=== PATIENT | female | born 1960 | race Two or more races ===

== ENCOUNTER 2019-06-27 19:14 | Observation (INO) | payer BC ==
[2019-06-27 19:28] VITALS: BMI 21.4
--- NOTE | 2019-06-27 21:37 | PDOC ---
History of Present Illness - General Chief Complaint: Psychiatric Stated Complaint: CHEST PAIN Time Seen by Provider: 06/27/19 21:37 History Source: Patient Exam Limitations: No Limitations - History of Present Illness Initial Comments: 59 year old female with PMH HTN, HLD, NIDDM, hyperkalemia presented to ED for chest pain x4 weeks, worsening in the last week. PT reported she has been " going through a lot of stress" and whenever she thinks of "certain things" she feels the chest pain associated with shortness of breath/palpitations. She stated that she was seen by her PCP Thursday, but "was too embarrassed" to bring it up with her doctor. She denied hemoptysis, calf swelling, hormone use, OCP use, hx of DVT/PE, hx of malignancy, hx of surgery <4 weeks. Pt reported she flew from [place] on a three hour flight x2 weeks ago. She reported she feels the episodes are coming more frequently and higher in intensity today, prompting her to come to ED. Her reported to me that their daughter is having substance abuse issues with ETOH, has lost multiple jobs, and is a stress on the family, moreso the patient. PCP/Cardiology: Dr. Coley ([facility]) Last ECHO: 12/2018 - reported normal per pt Last Nuclear Stress 07/2017 - reported not all normal but unsure of actual results "something about my coronary arteries" per pt ROS General: denied fever, chills, generalized weakness. HEENT: denied sore throat, rhinorrhea, ear pain. Cardiovascular: admitted to chest pain, palpitations. denied syncope, diaphoresis. Respiratory: admitted to shortness of breath. denied cough, sputum production, hemoptysis. Gastrointestinal: denied abdominal pain, nausea, vomiting, diarrhea, constipation, blood in stool. Genitourinary: denied dysuria, increased urinary frequency, hematuria, urinary incontinence, flank pain. Back: denied back pain. Musculoskeletal: denied joint pain, muscle pain, joint swelling. Neurological: denied headache, dizziness, numbness, tingling, weakness. Integumentary: denied rash, laceration, abrasion. Hematologic/Lymphatic: denied bruising or bleeding. PE Constitutional: Well-nourished, Well-developed, appearing stated age. HEENT: head is normocephalic, atraumatic. EOMI. PERRLA. Neck: supple. Full ROM. Cardiovascular: regular heart rhythm. no murmurs. no pericardial friction rub. chest pain reproducible with talking about her daughter. Respiratory: clear to auscultation bilaterally. no crackles, rhonchi or wheezing. no stridor. Gastrointestinal: soft, nontender. normal bowel sounds. no rebound, guarding, masses. Extremities: peripheral pulses intact. no lower extremity edema. no calf tenderness bilaterally. Neurological: CN 2-12 grossly intact. moves all four extremities. Psych: awake, alert, oriented x3. follows commands. answers questions appropriately. Past History - Past Medical History Allergies/Adverse Reactions: Allergies Allergy/AdvReac Type Severity Reaction Status Date / Time Penicillins Allergy Verified 06/27/19 19:21 - Psycho Social/Smoking Cessation Hx Smoking History: Never smoked Hx Alcohol Use: No Drug/Substance Use Hx: No *Physical Exam - Vital Signs Last Vital Signs Temp Pulse Resp BP Pulse Ox 97.6 F 71 18 128/79 99 06/27/19 19:21 06/27/19 19:21 06/27/19 19:21 06/27/19 19:21 06/27/19 19:21 ED Treatment Course - LABORATORY CBC & Chemistry Diagram: 06/27/19 22:00 06/27/19 23:50 Medical Decision Making - Medical Decision Making 59 year old female with above PMH presented to ED for chest pain/palpitations/ shortness of breath episodes x4 weeks, worsening over the last week. Initial Vital Signs Temp Pulse Resp BP Pulse Ox 97.6 F 71 18 128/79 99 06/27/19 19:21 06/27/19 19:21 06/27/19 19:21 06/27/19 19:21 06/27/19 19:21 Afebrile. No tachycardia. No tachypnea. No hypertension, no hypotension. No hypoxia on room air. Labs ordered: CBC, CMP, mag, troponin, BNP Imaging ordered: CXR Medications ordered: ASA 324 mg PO chew, tylenol IV EKG performed at 1919: rate 73, regular rhythm, normal axis, normal intervals, QTc 429, no acute ST changes. CXR my view: sharp costophrenic angles. no cardiomegaly. no infiltrate. no pulmonary vascular congestion. -Pending official report 06/28/19 00:08 Lab reported CMP hemolyzed (both jungle tops) Repeat drawn and sent now. CBC WBC 9.1 K/mm3 (4.0-10.0) 06/27/19 22:00 RBC 4.77 M/mm3 (3.60-5.2) 06/27/19 22:00 Hgb 13.6 GM/dL (10.7-15.3) 06/27/19 22:00 Hct 41.8 % (32.4-45.2) 06/27/19 22:00 MCV 87.5 fl (80-96) 06/27/19 22:00 MCH 28.4 pg (25.7-33.7) 06/27/19 22:00 MCHC 32.5 g/dl (32.0-36.0) 06/27/19 22:00 RDW 14.5 % (11.6-15.6) 06/27/19 22:00 Plt Count 342 K/MM3 (134-434) 06/27/19 22:00 MPV 10.0 fl (7.5-11.1) 06/27/19 22:00 Absolute Neuts (auto) 5.0 K/mm3 (1.5-8.0) 06/27/19 22:00 Neutrophils % 55.2 % (42.8-82.8) 06/27/19 22:00 Lymphocytes % 35.4 % (8-40) 06/27/19 22:00 Monocytes % 6.9 % (3.8-10.2) 06/27/19 22:00 Eosinophils % 1.8 % (0-4.5) 06/27/19 22:00 Basophils % 0.7 % (0-2.0) 06/27/19 22:00 Nucleated RBC % 0 % (0-0) 06/27/19 22:00 No leukocytosis. No anemia. 06/28/19 00:39 Pt reported throat "burning" and pain. 06/28/19 01:32 CMP Sodium 141 mmol/L (136-145) 06/27/19 23:50 Potassium 4.6 mmol/L (3.5-5.1) 06/27/19 23:50 Chloride 108 mmol/L (98-107) H 06/27/19 23:50 Carbon Dioxide 25 mmol/L (21-32) 06/27/19 23:50 Anion Gap 10 MMOL/L (8-16) 06/27/19 23:50 BUN 25.0 mg/dL (7-18) H 06/27/19 23:50 Creatinine 0.9 mg/dL (0.55-1.3) 06/27/19 23:50 Est GFR (CKD-EPI)AfAm 81.11 06/27/19 23:50 Est GFR (CKD-EPI)NonAf 69.99 06/27/19 23:50 Random Glucose 96 mg/dL (74-106) 06/27/19 23:50 Calcium 10.2 mg/dL (8.5-10.1) H 06/27/19 23:50 Magnesium 2.0 mg/dL (1.8-2.4) 06/28/19 00:02 Total Bilirubin 0.6 mg/dL (0.2-1) 06/27/19 23:50 AST 22 U/L (15-37) 06/27/19 23:50 ALT 26 U/L (13-61) 06/27/19 23:50 Alkaline Phosphatase 78 U/L (45-117) 06/27/19 23:50 Troponin I < 0.02 ng/ml (0.00-0.05) 06/28/19 00:02 B-Natriuretic Peptide 15.8 pg/ml (5-125) 06/27/19 22:00 Total Protein 7.3 g/dl (6.4-8.2) 06/27/19 23:50 Albumin 3.9 g/dl (3.4-5.0) 06/27/19 23:50 Lipase 130 U/L (73-393) 06/28/19 00:02 No electrolyte abnormalities. No FREDY. No transaminitis. Troponin undetectable. BNP wnl. Lipase wnl. Pt to be admitted for chest pain, tele/obs. Pt has risk factors for ACS (DM, HTN , HLD, brother with ID in 40s) and is at risk for Takusubos, would benefit from ECHO and cardiology evaluation in the AM. EKG performed at 0153: rate 56, regular rhythm, normal axis, normal intervals, QTc 430, no acute ST changes. Discharge - Discharge Information Problems reviewed: Yes Clinical Impression/Diagnosis: Chest pain Condition: Stable - Admission Yes - Follow up/Referral - Patient Discharge Instructions - Post Discharge Activity
[2019-06-27] MEDS ORDERED: ASPIRIN 81 MG CHEWABLE TABLETS PO ONE (22:00)
[2019-06-27] MEDS ORDERED: SODIUM CHLORIDE 1,000 ML IV STA (22:00)
[2019-06-27 22:28] LABS: INR 0.98 (0.83-1.09); PROTHROMBIN TIME (PATIENT) 11.6 SEC (9.7-13.0)
[2019-06-27 23:05] LABS: BASO % 0.7 % (0-2.0); EOS % 1.8 % (0-4.5); HEMATOCRIT 41.8 % (32.4-45.2); HEMOGLOBIN 13.6 GM/dL (10.7-15.3); LYMPH % 35.4 % (8-40); MCH 28.4 pg (25.7-33.7); MCHC 32.5 g/dl (32.0-36.0); MEAN CELL VOLUME 87.5 fl (80-96); MONO % 6.9 % (3.8-10.2); NEUT % 55.2 % (42.8-82.8); PLATELET COUNT 342 K/MM3 (134-434); RBC 4.77 M/mm3 (3.60-5.2); RDW 14.5 % (11.6-15.6); WHITE BLOOD COUNT 9.1 K/mm3 (4.0-10.0)
[2019-06-28] MEDS ORDERED: SODIUM CHLORIDE 1,000 ML IV STA (00:37)
[2019-06-28] MEDS ORDERED: ASPIRIN COATED 81 MG TABLET.EC ONE ×2 (00:38→11:38)
[2019-06-28] MEDS ORDERED: ACETAMINOPHEN 1000 MG/100 ML VIAL (NON FORMULARY) IVPB ONE (00:39)
[2019-06-28] MEDS ORDERED: FAMOTIDINE 20 MG/50 ML IVPB 20 MG/50 ML MG IVPB ONE (00:39)
[2019-06-28] MEDS ORDERED: ACETAMINOPHEN 325 MG TABLET (FP) PO ONE (00:40)
[2019-06-28] MEDS ORDERED: ACETAMINOPHEN 325 MG TABLET (FP) ONE (00:41)
[2019-06-28] MEDS ORDERED: FAMOTIDINE 20 MG TABLET PO ONE (00:42)
[2019-06-28] MEDS ORDERED: FAMOTIDINE 10 MG TABLET ONE (00:42)
[2019-06-28 00:52] LABS: LIPASE 130 U/L (73-393)
[2019-06-28 01:17] LABS: CREATININE 0.9 mg/dL (0.55-1.3)
[2019-06-28 01:18] LABS: CALCIUM 10.2 mg/dL (8.5-10.1); POTASSIUM 4.6 mmol/L (3.5-5.1); TOT PROT 7.3 g/dl (6.4-8.2)
[2019-06-28 01:19] LABS: ALBUMIN 3.9 g/dl (3.4-5.0); BILIRUBIN,TOTAL 0.6 mg/dL (0.2-1)
--- NOTE | 2019-06-28 01:33 | PDOC ---
Attending Attestation - Resident Resident Name: Elisa Otto - ED Attending Attestation I have performed the following: I have examined & evaluated the patient, The case was reviewed & discussed with the resident, I agree w/resident's findings & plan, Exceptions are as noted - HPI HPI: 06/28/19 03:10 59 yo F h/o htn hld DM family h/o cad brother with NM in 40's here with c/o intermittent cp for several weeks. worse and more frequent over the last. week. pt does associate her sxs with recent stress. denies pleurisy, no f/c no cough no sob. no leg swelling. travel to [place], via plane, no mod factors. no h/o pe or dvt. no prior cardiac stress test or workup. - Physicial Exam PE: 06/28/19 03:13 awake alert lungs clear bilat heart rrr nomrg abd soft nd nt ext wwp no edema. no calf tenderness. nuero alert oriented x 3. - Medical Decision Making 06/28/19 03:14 59 yo mult med problems here with c/o cp. differential angina, infection . no risk factors for pe. plan cxr labs ekg trop aspirin. will admit to tele r/o acs due to risk factors. Heart Score/ECG Review #1 General ECG Interpretation: Sinus Rhythm, Normal Intervals, No acute ischemic changes Compared to previous ECG there are: Other (sinus bradycardia.)
--- NOTE | 2019-06-28 03:16 | HP ---
CHIEF COMPLAINT: chest pain PCP: Kamlesh Coley M.D. ([facility]) HISTORY OF PRESENT ILLNESS: 59 y/o female PMH HTN, HLD, and NIDDM c/o chest pain occurring with increasing frequency over the last 2 weeks. She states that over the course of the past month she has become severely worried about her 28 y/o daughter as she has been frequently intoxicated by etoh (falling asleep in train, losing multiple jobs; daughter was never assaulted and does not operate a motor vehicle). The chest pain is mid-sternal, occurs suddenly, persists for 3-5 minutes, characterized by pressure, radiates to UE BL, made better with rest, and is 10/10 when present. She has never experienced this before, has not been performing heavy lifting/exercise, denies taking medication to treat the symptom, and symptoms recur when she thinks about her daughter's etoh consumption. The CP is associated with palpitations, racing heart rate, sweating, trembling, feelings of choking, and a feeling of doom. She recently traveled to [place] (3 hour flight, 2 weeks ago), denies SOB, and denies calf pain. She denies NVFD and chills. She has had no sick contacts, recent illness or recent travel. ER course was notable for: (1) ASA 324 mg PO chew, tylenol IV (2) EKG NSR, no acute ST changes x3 (3) Trop NEG x1 Heart score of 4: moderately suspicious history, 59 y/o, 3+ risk factors, trop1 NEG Recent Travel: [place] (3 hour flight, 2 weeks ago) PAST MEDICAL HISTORY: HTN, HLD, and NIDDM PAST SURGICAL HISTORY: (1989), tubal ligation (2006), abdominoplasty ( 2007) Social History: Smoking: Denies Alcohol: Denies Drugs: Denies Family history: Mother - breast cancer; Father - cirrhosis; brother - [place] Allergies: Penicillins Allergy (Verified 06/27/19 19:21) HOME MEDICATIONS: - Metformin 500 mg BID - Amlodepine 10 mg QD - Rosuvastatin 10 mg HS - Homeopathic herbs: Triphala, Ashwagandha REVIEW OF SYSTEMS CONSTITUTIONAL: Absent: fever, chills, diaphoresis, generalized weakness, malaise, loss of appetite, weight change HEENT: Absent: rhinorrhea, nasal congestion, throat pain, throat swelling, difficulty swallowing, mouth swelling, ear pain, eye pain, visual changes CARDIOVASCULAR: Absent: chest pain, syncope, palpitations, irregular heart rate, lightheadedness , peripheral edema RESPIRATORY: Absent: cough, shortness of breath, dyspnea with exertion, orthopnea, wheezing, stridor, hemoptysis GASTROINTESTINAL: Absent: abdominal pain, abdominal distension, nausea, vomiting, diarrhea, constipation, melena, hematochezia GENITOURINARY: Absent: dysuria, frequency, urgency, hesitancy, hematuria, flank pain, genital pain MUSCULOSKELETAL: Absent: myalgia, arthralgia, joint swelling, back pain, neck pain SKIN: Absent: rash, itching, pallor HEMATOLOGIC/IMMUNOLOGIC: Absent: easy bleeding, easy bruising, lymphadenopathy, frequent infections ENDOCRINE: Absent: unexplained weight gain, unexplained weight loss, heat intolerance, cold intolerance NEUROLOGIC: Absent: headache, focal weakness or paresthesias, dizziness, unsteady gait, seizure, mental status changes, bladder or bowel incontinence PSYCHIATRIC: Absent: anxiety, depression, suicidal or homicidal ideation, hallucinations. PHYSICAL EXAMINATION Vital Signs - 24 hr 06/27/19 19:21 Temperature 97.6 F Pulse Rate 71 Respiratory 18 Rate Blood Pressure 128/79 O2 Sat by Pulse 99 Oximetry (%) GENERAL: AOx3, in no acute distress, resting comfortably in bed with sheets over head. HEAD: NCAT EYES: SEBASTIAN, EOMI, conjunctiva clear. ENT: Ears normal, nares patent, oropharynx clear without exudates. Moist mucous membranes. NECK: Normal range of motion, supple without lymphadenopathy, JVD, or masses. LUNGS: CTAB. No wheezes, and no crackles. No accessory muscle use. HEART: RRR s1 s2 ABDOMEN: Soft, BS present in all 4 quadrants, non-distended, no JVD, MUSCULOSKELETAL: No bony deformities or tenderness. No CVA tenderness. UPPER EXTREMITIES: 2+ pulses, warm, well-perfused. No cyanosis. No clubbing. No peripheral edema. LOWER EXTREMITIES: 2+ pulses, warm, well-perfused. No calf tenderness. No peripheral edema. NEUROLOGICAL: No focal deficits. Cranial nerves II-XII intact. Normal speech. Gait not appreciated. PSYCHIATRIC: Cooperative. Good eye contact. Appropriate mood and affect. SKIN: Warm, dry, normal turgor, no rashes or lesions noted, normal capillary refill. Laboratory Results - last 24 hr 06/27/19 06/27/19 06/27/19 22:00 22:00 22:00 WBC 9.1 RBC 4.77 Hgb 13.6 Hct 41.8 MCV 87.5 MCH 28.4 MCHC 32.5 RDW 14.5 Plt Count 342 MPV 10.0 Absolute Neuts (auto) 5.0 Neutrophils % 55.2 Lymphocytes % 35.4 Monocytes % 6.9 Eosinophils % 1.8 Basophils % 0.7 Nucleated RBC % 0 PT with INR 11.60 INR 0.98 PTT (Actin FS) 37.0 H Sodium Cancelled Potassium Cancelled Chloride Cancelled Carbon Dioxide Cancelled Anion Gap Cancelled BUN Cancelled Creatinine Cancelled Est GFR (CKD-EPI)AfAm Cancelled Est GFR (CKD-EPI)NonAf Cancelled Random Glucose Cancelled Calcium Cancelled Magnesium Cancelled Total Bilirubin Cancelled AST Cancelled ALT Cancelled Alkaline Phosphatase Cancelled Troponin I Cancelled B-Natriuretic Peptide Total Protein Cancelled Albumin Cancelled Lipase Cancelled 06/27/19 06/27/19 06/28/19 22:00 23:50 00:02 WBC RBC Hgb Hct MCV MCH MCHC RDW Plt Count MPV Absolute Neuts (auto) Neutrophils % Lymphocytes % Monocytes % Eosinophils % Basophils % Nucleated RBC % PT with INR INR PTT (Actin FS) Sodium 141 Potassium 4.6 Chloride 108 H Carbon Dioxide 25 Anion Gap 10 BUN 25.0 H Creatinine 0.9 Est GFR (CKD-EPI)AfAm 81.11 Est GFR (CKD-EPI)NonAf 69.99 Random Glucose 96 Calcium 10.2 H Magnesium 2.0 Total Bilirubin 0.6 AST 22 ALT 26 Alkaline Phosphatase 78 Troponin I < 0.02 B-Natriuretic Peptide 15.8 Total Protein 7.3 Albumin 3.9 Lipase 130 ASSESSMENT/PLAN: 59 y/o female PMH HTN, HLD, and NIDDM c/o chest pain occurring with increasing frequency over the last 2 weeks. # Panic attack - Educate pt on need to est. regular visits with PCP - Consider SSRI # R/o ACS - ?Cosnider Takotsubo cardiomyopathy (weakening of left ventricle as the result of severe emotional or physical stress) - NPO for stress test - ECHO - Consult cardiology - F/u troponin - ASA 81 mg QD - Rosuvastatin 10 mg Po # DM - Hold home regimen - ISS ACHS # HLD - Cont. curent home regimen #F/E/N - PO - Cont. to monitor - NPO # DVT prophylaxis - Heparin SQ # Disposition - Admit to tele/observation Jean Fernandes MD Visit type - Emergency Visit Emergency Visit: Yes ED Registration Date: 06/28/19 Care time: The patient presented to the Emergency Department on the above date and was hospitalized for further evaluation of their emergent condition. - New Patient This patient is new to me today: Yes Date on this admission: 06/28/19 - Critical Care Critical Care patient: No ATTENDING PHYSICIAN STATEMENT I saw and evaluated the patient. I reviewed the resident's note and discussed the case with the resident. I agree with the resident's findings and plan as documented. SUBJECTIVE: OBJECTIVE: ASSESSMENT AND PLAN:
--- NOTE | 2019-06-28 04:05 | PN ---
Teaching Attending Note Name of Resident: Jean Fernandes ATTENDING PHYSICIAN STATEMENT I saw and evaluated the patient. I reviewed the resident's note and discussed the case with the resident. I agree with the resident's findings and plan as documented. SUBJECTIVE: 59-year-old woman with a history of hypertension, diabetes, family history significant for brother with massive ME at age 44, was under a lot of stress recently because of family issues and reports sharp mid chest pain with radiation to bilateral upper extremities not associated with significant shortness of breath on and off, no significant relation to exertion for about the past 2 weeks. Patient reports that she follows with electro mechanical technician outside and has had at least 3 cardiac stress test which were unremarkable for ischemia. OBJECTIVE: Last Vital Signs Temp Pulse Resp BP Pulse Ox 97.6 F 71 18 128/79 99 06/27/19 19:21 12 19:21 12 19:21 06/27/19 19:21 06/27/19 19:21 GENERAL: Well developed, well nourished. Awake and alert. No acute distress. HEENT: Normocephalic, atraumatic. PERRLA, EOMI. No conjunctival pallor. Sclera are non- icteric. Moist mucous membranes. Oropharynx is clear. NECK: Supple. Full ROM. No JVD. Carotid pulses 2+ and symmetric, without bruits. No thyromegaly. No lymphadenopathy. CARDIOVASCULAR: Regular rate and rhythm. No murmurs, rubs, or gallops. Distal pulses are 2+ and symmetric. PULMONARY: No evidence of respiratory distress. Lungs clear to auscultation bilaterally. No wheezing, rales or rhonchi. ABDOMINAL: Soft. Non-tender. Non-distended. No rebound or guarding. No organomegaly. Normoactive bowel sounds. MUSCULOSKELETAL Normal range of motion at all joints. No bony deformities or tenderness. No CVA tenderness. EXTREMITIES: No cyanosis. No clubbing. No edema. No calf tenderness. SKIN: Warm and dry. Normal capillary refill. No rashes. No jaundice. PSYCHIATRIC: Cooperative. Good eye contact. Appropriate mood and affect. Abnormal Lab Results 06/27/19 06/27/19 22:00 23:50 PTT (Actin FS) 37.0 H Chloride 108 H BUN 25.0 H Calcium 10.2 H EKG reviewed no ischemia noted Chest x-ray reviewed ASSESSMENT AND PLAN: 59-year-old woman with moderate risk for cardiac disease given her strong family history and comorbidities with chest pain that is atypical nature, now resolved Telemetry ops Trend troponins Echo Cardiology evaluation Consider possible cardiac stress test Aspirin Statin Heparin subcutaneously for DVT prophylaxis Continue home meds
[2019-06-28] MEDS ORDERED: HEPARIN NA (PORCINE) 5,000 UNITS/ML 1ML VIAL SQ SCH (06:00)
[2019-06-28] MEDS ORDERED: HEPARIN NA (PORCINE) 5,000 UNITS/ML 1ML VIAL ONE (06:38)
[2019-06-28 07:00] VITALS: BP 118/65; PULSE 61; TEMP 97.9
[2019-06-28 07:14] LABS: HEMATOCRIT 38.3 % (32.4-45.2); HEMOGLOBIN 12.9 GM/dL (10.7-15.3); MCH 29.2 pg (25.7-33.7); MCHC 33.6 g/dl (32.0-36.0); MEAN CELL VOLUME 86.9 fl (80-96); MEAN PLT VOLUME 9.1 fl (7.5-11.1); PLATELET COUNT 311 K/MM3 (134-434); WHITE BLOOD COUNT 8.6 K/mm3 (4.0-10.0)
--- NOTE | 2019-06-28 07:44 | PDOC ---
Patient Follow-up (Call Back) - Post ED Follow - Up Condition at time of discharge: Stable Reason for Call Back: Radiology (Dr Lucia called to inform of questionable nodule along R first rib. Recommending follow up with PCP after DC.)
[2019-06-28 07:49] LABS: ANION GAP 5 MMOL/L (8-16); BLOOD UREA NITROGEN 21.1 mg/dL (7-18); CALCIUM 9.1 mg/dL (8.5-10.1); CHLORIDE 112 mmol/L (98-107); CO2 24 mmol/L (21-32); GLUCOSE,RANDOM 99 mg/dL (74-106); MAGNESIUM 2.1 mg/dL (1.8-2.4); PHOSPHOROUS 3.7 mg/dL (2.5-4.9); POTASSIUM 3.9 mmol/L (3.5-5.1); SODIUM 141 mmol/L (136-145)
--- NOTE | 2019-06-28 09:30 | EKG ---
Test Reason : Blood Pressure : / mmHG Vent. Rate : 056 BPM Atrial Rate : 056 BPM P-R Int : 180 ms QRS Dur : 086 ms QT Int : 446 ms P-R-T Axes : 050 066 067 degrees QTc Int : 430 ms SINUS BRADYCARDIA OTHERWISE NORMAL ECG NO PREVIOUS ECGS AVAILABLE Confirmed by MD Robert, Hakeem ([id number]) on 06/28/2019 9:30:07 AM Referred By: Confirmed By:Hakeem Jones MD
[2019-06-28] MEDS ORDERED: ROSUVASTATIN CA 10 MG TABLET (FP) PO SCH ×2 (10:00→22:00)
[2019-06-28] MEDS ORDERED: amLODIPine BESYLATE 10 MG TABLET (FP) PO SCH (10:00)
[2019-06-28] MEDS ORDERED: ASPIRIN COATED 81 MG TABLET.EC PO SCH (10:00)
--- NOTE | 2019-06-28 11:10 | CON.CARD ---
Consult Consult Specialty:: Cardiology Referred by:: Hospitalist Reason for Consultation:: Cardiac evaluation - History of Present Illness Chief Complaint: Chest pain History of Present Illness: Patient is a 59 year old female with underlying history of HTN, T2DM and hypercholesterolemia who presented to ED with mid sternal chest pressure with radiation to both arms. She states having lot of stress recently due to family issues. She does not report shortness of breath or palpitations. She had seen Dr. Ari Alston of [facility] in the past and then Dr. Baldev Pascual one occasion , however; she now sees a manager copy affiliated with [facility]. She states that she has had echocardiography and nuclear MPI both 2017 and 2018 and states that they were unremarkable. Currently, she denies paroxysmal nocturnal dyspnea or orthopnea. She denies fever or chills. She denies nausea, vomiting, diarrhea or abdominal pain. She denies headache or lightheadedness. - History Source History Provided By: Patient, Medical Record Limitations to Obtaining History: No Limitations - Past Medical History Cardio/Vascular: Yes: HTN, Hyperlipdemia Endocrine: Yes: Diabetes Mellitus - Past Surgical History Past Surgical History: Yes: Additional Surgical History: Abdominoplasty - Alcohol/Substance Use Hx Alcohol Use: No History of Substance Use: reports: None - Smoking History Smoking history: Never smoked Home Medications - Allergies Allergies/Adverse Reactions: Allergies Allergy/AdvReac Type Severity Reaction Status Date / Time Penicillins Allergy Verified 06/27/19 19:21 - Home Medications Home Medications: Ambulatory Orders Amlodipine Besylate 10 mg PO DAILY 06/28/19 Metformin HCl [Glucophage] 500 mg PO BID 06/28/19 Rosuvastatin Calcium [Crestor] 10 mg PO DAILY 06/28/19 Family Medical History Family Hx Cancer: Mother (Breast cancer) Family Hx Coronary Artery Disease: Brother (NM) Review of Systems - Review of Systems Constitutional: denies: Chills, Fever Cardiovascular: reports: Chest Pain. denies: Palpitations, Shortness of Breath Respiratory: denies: Cough, Hemoptysis, Orthopnea, PND, SOB, SOB on Exertion Gastrointestinal: denies: Abdominal Pain, Constipation, Diarrhea, Melena, Nausea , Rectal Bleeding, Vomiting Neurological: denies: Dizziness, Headache, Seizure, Syncope Vital Signs: Vital Signs Temperature 97.9 F 12/03/19 06:59 Pulse Rate 61 06/28/19 06:59 Respiratory Rate 18 06/28/19 06:59 Blood Pressure 118/65 06/28/19 06:59 O2 Sat by Pulse Oximetry (%) 98 06/28/19 06:59 Eyes: Yes: PERRL HENT: Yes: Atraumatic Neck: Yes: Supple Respiratory: Yes: CTA Bilaterally Gastrointestinal: Yes: Normal Bowel Sounds, Soft. No: Tenderness Cardiovascular: Yes: Regular Rate and Rhythm JVD: No Carotid Bruit: No PMI: Non-Displaced Heart Sounds: Yes: S1, S2 Edema: No - Other Data Labs, Other Data: CBC, BMP 06/28/19 06:27 06/28/19 06:27 INR, PTT INR 0.98 (0.83-1.09) 06/27/19 22:00 Troponin, BNP 06/27/19 06/27/19 06/28/19 22:00 22:00 00:02 Troponin I Cancelled < 0.02 B-Natriuretic Peptide 15.8 06/28/19 06:27 Troponin I < 0.02 B-Natriuretic Peptide Sinus bradycardia, normal ECG Echo: Pending Imaging - Results Chest X-ray: Report Reviewed (Questionable lung nodules) EKG: Report Reviewed Problem List - Problems (1) HTN (hypertension) Code(s): I10 - ESSENTIAL (PRIMARY) HYPERTENSION (2) Hypercholesterolemia Code(s): E78.00 - PURE HYPERCHOLESTEROLEMIA, UNSPECIFIED (3) T2DM (type 2 diabetes mellitus) Code(s): E11.9 - TYPE 2 DIABETES MELLITUS WITHOUT COMPLICATIONS (4) Pulmonary nodule Code(s): R91.1 - SOLITARY PULMONARY NODULE (5) Chest pain Code(s): R07.9 - CHEST PAIN, UNSPECIFIED Assessment/Plan 1. Chest pain syndrome, atypical 2. HTN 3. Hypercholesterolemia 4. T2DM 5. ? Lung nodules PLAN: 1. Trend troponin 2. Echocardiography to assess LV/RV and valvular function and to rule out Takotsubo CM in view of recent stress (Preliminary reveals normal LV systolic function) 3. No need to nuclear MPI at this time since she has had studies done with her manager copy as outpatient. Further work up and follow up can be done as outpatient. Discharge planing if echocardiography is unremarkable 4. Continue Amlodipine 5. Continue Statin therapy 6. Continue DM management 7. Agree with ASA 8. Further work up for lung nodule. Cancer surveillance in view of family history of breast cancer Further plans are to follow Pedro Marlow MD
--- NOTE | 2019-06-28 11:23 | ECHO ---
Version: 1 Name: MENDOZA TALBOT Exam: Adult Echocardiogram Study Date: 06/28/2019, 9:30 AM Age: 59 Years MMode/2D Measurements & Calculations IVSd: 0.78 cm LVIDs: 2.15 cm LVIDd: 3.1 cm LVPWd: 0.64 cm LVOT diam: 1.58 cm Ao root diam: 2.01 cm LA dimension: 3.1 cm Doppler Measurements & Calculations MV E max jay: 102.4 cm/sec Med E/e': 15.6 MV A max jay: 68.5 cm/sec Med Peak E' Jay: 6.6 cm/sec MV E/A: 1.50 Lat E/e': 8.4 Lat Peak E' Jay: 12.2 cm/sec Ao max P.4 mmHg Ao V2 max: 153.6 cm/sec TR max jay: 242.5 cm/sec TR max P.5 mmHg Left Ventricle The left ventricular size, thickness and function are normal. Ejection Fraction = 55-60%. The transm itral spectral Doppler flow pattern is normal for age. No regional wall motion abnormalities noted. Right Ventricle The right ventricle is normal in size and function. Atria Normal left and right atrial size and function. Mitral Valve The mitral valve is normal in structure and function. Tricuspid Valve The tricuspid valve is normal in structure and function. Right ventricular systolic pressure is norm al. Aortic Valve There is mild aortic valve thickening. No hemodynamically significant valvular aortic stenosis. Pulmonic Valve The pulmonic valve is not well seen, but is grossly normal. Great Vessels The aortic root is normal size. Pericardium/Pleura There is no pericardial effusion. There is no pleural effusion. Summary Statements This was essentially a normal study. MD Sharri Mendez06/28/2019, 11:23 AM Ordering Physician: Adalberto Fernandes Referring Physician: ADALBERTO FERNANDES Performed By: Medina Brady
[2019-06-28] MEDS ORDERED: amLODIPine BESYLATE 5 MG TABLET (FP) ONE (11:38)
--- NOTE | 2019-06-28 12:31 | DS ---
Physical Exam: SUBJECTIVE: Patient seen and examined OBJECTIVE: Vital Signs Period Temp Pulse Resp BP Sys/Rodriguez Pulse Ox Last 24 Hr 97.6 F-97.9 F 61-71 18-18 118-128/65-79 98-99 PHYSICAL EXAM GENERAL: The patient is awake, alert, and fully oriented, in no acute distress. HEAD: Normal with no signs of trauma. EYES: PERRL, extraocular movements intact, sclera anicteric, conjunctiva clear. ENT: Ears normal, nares patent, oropharynx clear without exudates, moist mucous membranes. NECK: Trachea midline, full range of motion, supple. LUNGS: Breath sounds equal, clear to auscultation bilaterally, no wheezes, no crackles, no accessory muscle use. HEART: Regular rate and rhythm, S1, S2 without murmur, rub or gallop. ABDOMEN: Soft, nontender, nondistended, normoactive bowel sounds, no guarding, no rebound, no hepatosplenomegaly, no masses. EXTREMITIES: 2+ pulses, warm, well-perfused, no edema. NEUROLOGICAL: Cranial nerves II through XII grossly intact. Normal speech, gait not observed. PSYCH: Normal mood, normal affect. SKIN: Warm, dry, normal turgor, no rashes or lesions noted. LABS Laboratory Results - last 24 hr 06/27/19 06/27/19 06/27/19 22:00 22:00 22:00 WBC 9.1 RBC 4.77 Hgb 13.6 Hct 41.8 MCV 87.5 MCH 28.4 MCHC 32.5 RDW 14.5 Plt Count 342 MPV 10.0 Absolute Neuts (auto) 5.0 Neutrophils % 55.2 Lymphocytes % 35.4 Monocytes % 6.9 Eosinophils % 1.8 Basophils % 0.7 Nucleated RBC % 0 PT with INR 11.60 INR 0.98 PTT (Actin FS) 37.0 H Sodium Cancelled Potassium Cancelled Chloride Cancelled Carbon Dioxide Cancelled Anion Gap Cancelled BUN Cancelled Creatinine Cancelled Est GFR (CKD-EPI)AfAm Cancelled Est GFR (CKD-EPI)NonAf Cancelled POC Glucometer Random Glucose Cancelled Calcium Cancelled Phosphorus Magnesium Cancelled Total Bilirubin Cancelled AST Cancelled ALT Cancelled Alkaline Phosphatase Cancelled Troponin I Cancelled B-Natriuretic Peptide Total Protein Cancelled Albumin Cancelled Lipase Cancelled TSH 12/09/1406/27/19 06/28/19 22:00 23:50 00:02 WBC RBC Hgb Hct MCV MCH MCHC RDW Plt Count MPV Absolute Neuts (auto) Neutrophils % Lymphocytes % Monocytes % Eosinophils % Basophils % Nucleated RBC % PT with INR INR PTT (Actin FS) Sodium 141 Potassium 4.6 Chloride 108 H Carbon Dioxide 25 Anion Gap 10 BUN 25.0 H Creatinine 0.9 Est GFR (CKD-EPI)AfAm 81.11 Est GFR (CKD-EPI)NonAf 69.99 POC Glucometer Random Glucose 96 Calcium 10.2 H Phosphorus Magnesium 2.0 Total Bilirubin 0.6 AST 22 ALT 26 Alkaline Phosphatase 78 Troponin I < 0.02 B-Natriuretic Peptide 15.8 Total Protein 7.3 Albumin 3.9 Lipase 130 TSH 06/28/19 06/28/19 06/28/19 06:27 06:27 06:36 WBC 8.6 RBC 4.40 Hgb 12.9 Hct 38.3 MCV 86.9 MCH 29.2 MCHC 33.6 RDW 14.0 Plt Count 311 MPV 9.1 Absolute Neuts (auto) Neutrophils % Lymphocytes % Monocytes % Eosinophils % Basophils % Nucleated RBC % PT with INR INR PTT (Actin FS) Sodium 141 Potassium 3.9 Chloride 112 H Carbon Dioxide 24 Anion Gap 5 L BUN 21.1 H Creatinine 1.0 Est GFR (CKD-EPI)AfAm 71.41 Est GFR (CKD-EPI)NonAf 61.62 POC Glucometer 95 Random Glucose 99 Calcium 9.1 Phosphorus 3.7 Magnesium 2.1 Total Bilirubin AST ALT Alkaline Phosphatase Troponin I < 0.02 B-Natriuretic Peptide Total Protein Albumin Lipase TSH 1.85 HOSPITAL COURSE: Date of Admission:06/28/19 Date of Discharge: 06/28/19 Discharge Summary Problems reviewed: Yes Reason For Visit: CHEST PAIN Current Active Problems Chest pain (Acute) HTN (hypertension) (Acute) Hypercholesterolemia (Acute) Pulmonary nodule (Acute) T2DM (type 2 diabetes mellitus) (Acute) Condition: Stable - Instructions Diet, Activity, Other Instructions: Please follow up with your primary care doctor. Thank you for allowing us to care for you. Referrals: ON STAFF,NOT [Primary Care Provider] - Disposition: HOME - Home Medications Comprehensive Discharge Medication List: Ambulatory Orders Amlodipine Besylate 10 mg PO DAILY 06/28/19 Metformin HCl [Glucophage] 500 mg PO BID 06/28/19 Rosuvastatin Calcium [Crestor] 10 mg PO DAILY 06/28/19
--- NOTE | 2019-06-30 10:42 | EKG ---
Test Reason : Blood Pressure : / mmHG Vent. Rate : 073 BPM Atrial Rate : 073 BPM P-R Int : 148 ms QRS Dur : 072 ms QT Int : 390 ms P-R-T Axes : 056 062 060 degrees QTc Int : 429 ms NORMAL SINUS RHYTHM NORMAL ECG NO PREVIOUS ECGS AVAILABLE Confirmed by LUIS ARTIS, SAURABH ([id number]) on 06/30/2019 10:41:33 AM Referred By: Confirmed By:SAURABH SMITH MD
== END 2019-06-28 13:30 | disposition home or self-care (01) ==
LOC: JER 19:14 → JERBED 06-28 01:46
PROVIDERS: ADMIT Internal Medicine; ATTEND Nurse Practitioner Family
PROC: 3E013GC Introduction of Other Therapeutic Substance into Subcutaneous Tissue, Percutaneous Approach (ICD-10-PCS; principal; 2019-06-28)
DX: R07.9 Chest pain, unspecified (principal); I10 Essential (primary) hypertension; E11.9 Type 2 diabetes mellitus without complications; Z79.84 Long term (current) use of oral hypoglycemic drugs; E87.5 Hyperkalemia; E78.5 Hyperlipidemia, unspecified; R91.1 Solitary pulmonary nodule; Z82.49 Family history of ischemic heart disease and other diseases of the circulatory system; Z88.0 Allergy status to penicillin
CPT/HCPCS: 36415; 71046-TC-FY; 80048; 80053; 82962; 83690; 83735; 83880; 84100; 84443; 84484; 85025; 85027; 85610; 85730; 93005; 93010; 93306-TC; 99283-25; G0378; J1644; J7030